=== PATIENT | male | born 1990 | race Two or more races ===

== ENCOUNTER 2023-12-06 19:34 | Emergency (ER) | payer SELFPAY ==
[~2023-12-06] VITALS: Ht 190.5 cm; Wt 109.8 kg
[2023-12-06] MEDS ORDERED: NAPR-1009 PO (23:35)
[2023-12-06 23:50] VITALS: BP 126/89; TEMP 98; O2SAT 98
== END 2023-12-06 23:51 | disposition home or self-care (01) ==
LOC: ER 19:39
DX: S39.012A Strain of muscle, fascia and tendon of lower back, initial encounter (principal); S29.012A Strain of muscle and tendon of back wall of thorax, initial encounter; S60.512A Abrasion of left hand, initial encounter; V83.5XXA Driver of special industrial vehicle injured in nontraffic accident, initial encounter; Y93.89 Activity, other specified; Y92.488 Other paved roadways as the place of occurrence of the external cause; Y99.8 Other external cause status
CPT/HCPCS: 70450-TC; 71045-TC; 72125-TC; 72128-TC; 72131-TC